=== PATIENT | female | born 1985 | race American Indian/Alaskan Native ===

== ENCOUNTER 2021-08-11 10:52 | Emergency (ER) | payer SELFPAY ==
--- NOTE | 2021-08-11 12:28 | Emergency Department Report ---
ED Abdominal Pain HPI - General Chief Complaint: Abdominal Pain Stated Complaint: APPENDIX PAIN Source: patient Mode of arrival: Ambulatory Limitations: No Limitations - History of Present Illness Initial Comments: 35-year-old female presents to the ED complaining of abdominal pain x3 days. She states that pain is a current 7 out of 10 radiating to her right flank area. Patient states that she started exercising a week ago prior to having pain. Patient states that she had a cyst of her ovarian tube removed which left some scar tissue to her fallopian tube. Patient states that she was googling on the Internet and stated that she thinks that she might have a ruptured appendix. Patient denies taking any prior medication to coming to the ED. patient denies any dysuria ,nausea ,vomiting ,fever or chills. No acute distress noted. No ill appearance. MD Complaint: abdominal pain Onset/Timin -: days(s) Location: R flank Radiation: none Severity scale (0 -10): 3 Quality: aching Consistency: intermittent Improves With: nothing Worsens With: nothing Associated Symptoms: denies other symptoms, dysuria - Related Data Previous Rx's Medication Instructions Recorded Last Taken Type Naproxen [Naprosyn] 500 mg PO BID 15 Days #30 tablet 08/11/21 Unknown Rx Allergies Allergy/AdvReac Type Severity Reaction Status Date / Time Penicillins Allergy Itching Verified 08/11/21 11:13 ED Review of Systems ROS: Stated complaint: APPENDIX PAIN Other details as noted in HPI Constitutional: denies: chills, fever Eyes: denies: eye pain, eye discharge, vision change ENT: denies: ear pain, throat pain Respiratory: denies: cough, shortness of breath, wheezing Cardiovascular: denies: chest pain, palpitations Endocrine: no symptoms reported Gastrointestinal: abdominal pain. denies: nausea, diarrhea Genitourinary: denies: urgency, dysuria, discharge Musculoskeletal: denies: back pain, joint swelling, arthralgia Skin: denies: rash, lesions Neurological: denies: headache, weakness, paresthesias Psychiatric: denies: anxiety, depression Hematological/Lymphatic: denies: easy bleeding, easy bruising ED Past Medical Hx - Past Medical History Previous Medical History?: No - Surgical History Past Surgical History?: No - Social History Smoking Status: Never Smoker - Medications Home Medications: Home Medications Medication Instructions Recorded Confirmed Last Taken Type Naproxen [Naprosyn] 500 mg PO BID 15 Days #30 tablet 08/11/21 Unknown Rx ED Physical Exam - General Limitations: No Limitations General appearance: alert, in no apparent distress - Head Head exam: Present: atraumatic, normocephalic - Eye Eye exam: Present: normal appearance - ENT ENT exam: Present: mucous membranes moist - Neck Neck exam: Present: normal inspection - Respiratory Respiratory exam: Present: normal lung sounds bilaterally. Absent: respiratory distress - Cardiovascular Cardiovascular Exam: Present: regular rate, normal rhythm. Absent: systolic murmur, diastolic murmur, rubs, gallop - GI/Abdominal GI/Abdominal exam: Present: soft, normal bowel sounds - Extremities Exam Extremities exam: Present: normal inspection - Back Exam Back exam: Present: normal inspection - Neurological Exam Neurological exam: Present: alert, oriented X3 - Psychiatric Psychiatric exam: Present: normal affect, normal mood - Skin Skin exam: Present: warm, dry, intact, normal color. Absent: rash ED Course Vital Signs 08/11/21 08/11/21 11:10 16:00 Temperature 98.5 F 98.2 F Pulse Rate 102 H 70 Respiratory 18 18 Rate Blood Pressure 106/84 Blood Pressure 124/81 [Right] O2 Sat by Pulse 100 98 Oximetry ED Medical Decision Making - Lab Data Result diagrams: 08/11/21 12:01 08/11/21 12:01 - Radiology Data [facility] [address] [place] [address] Cat Scan Report Signed Patient: SIGIFREDO ALTAMIRANO MR#: [id number] : 1985 Acct:[id number] Age/Sex: 35 / F ADM Date: 08/11/21 Loc: ED Attending Dr: Ordering Physician: ZHEN RAMSAY Date of Service: 08/11/21 Procedure(s): CT abdomen pelvis wo/w con Accession Number(s): [id number] cc: ZHEN RAMSAY CT abdomen pelvis wo/w lisa INDICATION: pelvis pain and right flank pain, blood in urine. COMPARISON: None TECHNIQUE: CT urogram of the abdomen and pelvis. All CT scans at this location are performed using CT dose reduction for ALARA by means of automated exposure control. FINDINGS: CT ABDOMEN and PELVIS: Lung Bases: No significant abnormality. Liver: No significant abnormality. Biliary: No significant abnormality. Spleen: No significant abnormality. Pancreas: No significant abnormality. Adrenals: No significant abnormality. Kidneys: No renal stones. No hydronephrosis. No suspicious renal mass. On delayed imaging, there is no filling defects in the opacified portions of the collecting system, ureters, or bladder. Bladder: No mass. Lymphatics: No lymphadenopathy. Vasculature: No significant abnormality. Bowel: No significant abnormality. Normal appendix. Pelvis: There are bilateral hydrosalpinx with adjacent free fluid. There is a focal well-defined fluid collection. Osseous Structures: No aggressive osseous lesion. Additional Findings: None IMPRESSION: 1. Bilateral fallopian tube hydrosalpinx/pyosalpinx. No superimposed well- defined fluid collection. Signer Name: Adonay Reyes MD Signed: 08/11/2021 3:12 PM Workstation Name: [id number] Transcribed By: JUAN Dictated By: Adonay Ryees MD Electronically Authenticated By: Adonay Reyes MD Signed Date/Time: 08/11/21 1512 - Medical Decision Making 35-year-old female presents to the ED complaining of abdominal pain x3 days. She states that pain is a current 7 out of 10 radiating to her right flank area. Patient states that she started exercising a week ago prior to having pain. Patient states that she had a cyst of her ovarian tube removed which left some scar tissue to her fallopian tube. Patient states that she was googling on the Internet and stated that she thinks that she might have a ruptured appendix. Patient denies taking any prior medication to coming to the ED. patient denies any dysuria ,nausea ,vomiting ,fever or chills. No acute distress noted. No ill appearance. Physical examination patient has some tenderness to the pelvic area and right flank area. Patient had a CT of the /abdomen pelvis which shows bilateral fallopian tube hydrosalpinx/pyosalpinx.No supermposed well -defined fluid collection . Patient states that she was aware of her fallopian tubes and stated that she will follow-up with her [facility]. Rechecked the patient is resting quietly quietly and comfortable and feeling better. I discussed the results of diagnostic study, my clinical impression and the plan for further treatment with the patient. Patient agrees with plan and discharge at this present time. All question addressed. I have given the patient instruction regarding a diagnosis ,expectation ,follow- up and return precaution. I explained to the patient that emergent condition may arise and to return to the ED for new worsen and any new persisting condition. I have explained the importance of following up with the primary care physician or referral physician listed below has instructed. The patient verbalized understanding of discharge instruction. . Bi Critical care attestation.: If time is entered above; I have spent that time in minutes in the direct care of this critically ill patient, excluding procedure time. ED Disposition Clinical Impression: Abdominal pain Qualifiers: Abdominal location: generalized Qualified Code(s): R10.84 - Generalized abdominal pain Disposition: 30 STILL A PATIENT Is pt being admited?: No Condition: Stable Instructions: Abdominal Pain, Adult, [id number], Flank Pain, Adult, [id number], Abdominal Pain (ED) Additional Instructions: Take medication as prescribed Return to the ED for any worsening symptom Prescriptions: Naproxen [Naprosyn] 500 mg PO BID 15 Days #30 tablet Referrals: [facility] [Provider Group] - 3-5 Days Forms: Work/School Release Form(ED) Time of Disposition: 15:42
[2021-08-11 12:31] LABS: Hematocrit 35.1 % (30.3-42.9); Hemoglobin 11.7 gm/dl (10.1-14.3); Mean Corpuscular HGB Conc 33 % (30-34); Mean Corpuscular Volume 92 fl (79-97); Platelet Count 281 K/mm3 (140-440); Red Blood Count 3.81 M/mm3 (3.65-5.03); Red Cell Distribution Width 14.1 % (13.2-15.2)
[2021-08-11 12:39] LABS: Alanine Aminotransferase 12 units/L (7-56); BUN/Creatinine Ratio 10; Blood Urea Nitrogen 8 mg/dL (7-17); Calcium 9.3 mg/dL (8.4-10.2); Hemolysis Index 8
[2021-08-11 12:45] LABS: Bacteria,Urine 1+ /HPF (Negative); Bilirubin,Urine NEG (Negative); Blood,Urine SM (Negative); Color,Urine Yellow (Yellow); Mucus,Urine FEW /HPF; Protein,Urine <15 mg/dL mg/dL (Negative); Urobilinogen,Urine < 2.0 mg/dL (<2.0)
[2021-08-11 14:31] LABS: Basophils % (Manual) 0 % (0.0-1.8); Eosinophils % (Manual) 0 % (0.0-4.3); Total Cells Counted 100
[2021-08-11 14:32] LABS: Platelet Estimate Consistent w Auto; RBC Morphology Normal
--- NOTE | 2021-08-11 15:16 | Cat Scan Report ---
CT abdomen pelvis wo/w con INDICATION: pelvis pain and right flank pain, blood in urine. COMPARISON: None TECHNIQUE: CT urogram of the abdomen and pelvis. All CT scans at this location are performed using CT dose reduction for ALARA by means of automated exposure control. FINDINGS: CT ABDOMEN and PELVIS: Lung Bases: No significant abnormality. Liver: No significant abnormality. Biliary: No significant abnormality. Spleen: No significant abnormality. Pancreas: No significant abnormality. Adrenals: No significant abnormality. Kidneys: No renal stones. No hydronephrosis. No suspicious renal mass. On delayed imaging, there is n o filling defects in the opacified portions of the collecting system, ureters, or bladder. Bladder: No mass. Lymphatics: No lymphadenopathy. Vasculature: No significant abnormality. Bowel: No significant abnormality. Normal appendix. Pelvis: There are bilateral hydrosalpinx with adjacent free fluid. There is a focal well-defined flui d collection. Osseous Structures: No aggressive osseous lesion. Additional Findings: None IMPRESSION: 1. Bilateral fallopian tube hydrosalpinx/pyosalpinx. No superimposed well-defined fluid collection. Signer Name: Adonay Reyes MD Signed: 08/11/2021 3:12 PM Workstation Name: [id number]
[2021-08-11 16:02] VITALS: BP 124/81
== END 2021-08-11 16:00 | disposition still patient (30) ==
LOC: ED 10:52
DX: R10.9 Unspecified abdominal pain (principal)
CPT/HCPCS: 36415; 74178; 80053; 81001; 84702; 85007; 85025; 99284; Q9967